=== PATIENT | female | born 1950 | race Caucasian/White ===

== ENCOUNTER 2018-04-24 12:11 | Emergency (ER) | payer OTHER ==
[~2018-04-24] VITALS: Ht 160 cm; Wt 90.7 kg
[2018-04-24] MEDS ORDERED: TDAP DIPH,PERTUSS,TET VAC/PF 0.5 ML DISP.SYRIN IM ONE ×2 (12:45→12:49)
[2018-04-24] MEDS ORDERED: LIDOCAINE HCL 2% 20 ML VIAL TP ONE (12:45)
[2018-04-24] MEDS ORDERED: SODIUM BICARBONATE 4.2 % (NEUT) 5 ML VIAL TP ONE (12:45)
[2018-04-24] MEDS ORDERED: SODIUM BICARBONATE 4.2 % (NEUT) 5 ML VIAL ONE (12:46)
[2018-04-24] MEDS ORDERED: LIDOCAINE HCL 2% 20 ML VIAL ONE (12:46)
--- NOTE | 2018-04-24 12:57 | NUR ---
WOUND CLEANSED INSTRUCTED BY DR PAGE. PATIENT TOLERATED IT WELL. MELLISA PLACED BY .
--- NOTE | 2018-04-24 12:58 | NUR ---
DC AND FOLLOW UP INSTRUCTIONS GIVEN AND EXPLAINED TO PATIENT WHO STATES SHE UNDERSTANDS ALL INSTRUCTIONS INLCUDING F/U FOR STAPLE REMOVAL.
== END 2018-04-24 13:11 | disposition home or self-care (01) ==
LOC: ER 12:13
DX: S01.01XA Laceration without foreign body of scalp, initial encounter (principal); S49.91XA Unspecified injury of right shoulder and upper arm, initial encounter; I10 Essential (primary) hypertension; W01.0XXA Fall on same level from slipping, tripping and stumbling without subsequent striking against object, initial encounter; Y93.89 Activity, other specified; Y92.89 Other specified places as the place of occurrence of the external cause; Y99.8 Other external cause status
CPT/HCPCS: 12001; 90471; 90715; 99283; A4663; J3490 ×2

== ENCOUNTER 2018-04-26 11:50 | Emergency (ER) | payer OTHER ==
[~2018-04-26] VITALS: Ht 160 cm; Wt 72.6 kg
--- NOTE | 2018-04-26 12:08 | NUR ---
PATIENT WAS SEEN BY DR PAGE FOR WOUND RECHECK ON SCALP. DC AND F/U INSTRUCTIONS GIVEN AND EXPLAINED TO PATIENT WHO STATES SHE UNDERSTANDS ALL INSTRUCTIONS.
== END 2018-04-26 12:11 | disposition home or self-care (01) ==
LOC: ER 11:53
DX: S01.01XD Laceration without foreign body of scalp, subsequent encounter (principal); I10 Essential (primary) hypertension; Z48.01 Encounter for change or removal of surgical wound dressing; X58.XXXD Exposure to other specified factors, subsequent encounter
CPT/HCPCS: A4663

== ENCOUNTER 2018-04-30 15:36 | Emergency (ER) | payer OTHER ==
[~2018-04-30] VITALS: Ht 160 cm; Wt 72.6 kg
--- NOTE | 2018-04-30 15:48 | NUR ---
MSE COMPLERTED, SUTURES REMOVED BY DR SALAZAR AND VERBAL ACI PER DR SALAZAR, PT AMBULATED W/O DIFF/TOOK ALL BELONGINGS.
[2018-04-30 15:54] VITALS: BP 138/70
== END 2018-04-30 15:55 | disposition home or self-care (01) ==
LOC: ER 15:39
DX: S01.01XD Laceration without foreign body of scalp, subsequent encounter (principal); Z48.02 Encounter for removal of sutures; I10 Essential (primary) hypertension; X58.XXXD Exposure to other specified factors, subsequent encounter
CPT/HCPCS: A4663